=== PATIENT | male | born 1980 | race Caucasian/White ===

== ENCOUNTER 2022-06-25 18:19 | Emergency (ER) | payer BC ==
--- NOTE | 2022-06-25 19:52 | ED Fall/Injury ---
General Chief Complaint: Substance Abuse Stated Complaint: FELL AND HIT HEAD, DRINKING ALCOHOL FOR 5 DAYS Nursing Triage Note: PT CO OF DRINKING ETOH 4-5THS OF [place] SINCE THURSDAY. STATES FELL AND TRIPPED HIT HEAD A FEW HOURS AGO. DENIES LOC. PT HAS BLOOD ON CHIN. WANT TO GET SOBERED UP. STATE HAS LOTS OF ANXIETY. DAVID Hameed PT. Source: patient Exam Limitations: no limitations History of Present Illness Date Seen by Provider: Jun 25, 2022 Time Seen by Provider: 18:45 Initial Comments Patient is a 42-year-old male who presents to the emergency department after several days of "binge drinking" and hitting his head 4 to 5 hours prior to arrival. Patient states he was sober for 3 years prior to starting to drink again frequently 6 to 7 weeks ago. Patient states he did not lose consciousness and has not had any vomiting since the head injury occurred. He states he fell after tripping. States he has tolerated food and water since the head injury without issue. States he feels very good right now and is " more embarrassed than anything else." Denies any specific pain at the time of this interview. Allergies and Home Medications Patient Home Medication List Home Medication List Reviewed: Yes Review of Systems Review of Systems Constitutional: no symptoms reported Eyes: No Symptoms Reported Ears, Nose, Mouth, Throat: no symptoms reported Respiratory: no symptoms reported Cardiovascular: no symptoms reported Gastrointestinal: no symptoms reported Genitourinary: no symptoms reported Musculoskeletal: no symptoms reported Skin: no symptoms reported Psychiatric/Neurological: No Symptoms Reported Past Gdmayjt-Pszluj-Jyjtrs Hx Patient Social History Tobacco Use?: No Substance use?: No Alcohol Use?: Yes Alcohol type: Hard Liquor Alcohol Frequency: Daily Pt feels they are or have been: No Immunizations Up To Date Influenza Vaccine Up-to-Date: Yes; Up-to-Date First/Initial COVID19 Vaccinat: Y Second COVID19 Vaccination Santos: Y Third COVID19 Vaccination Date: Y Past Medical History Surgery/Hospitalization HX: B/P, ANXIETY, ALCOHOLIC Physical Exam Vital Signs Vital Signs - First Documented 06/25/22 18:45 Temp 36.4 Pulse 114 Resp 18 B/P (MAP) 118/84 (95) Pulse Ox 99 Capillary Refill : Less Than 3 Seconds Height, Weight, BMI Height: '" Weight: lbs. oz. kg; BMI Method: General Appearance: WD/WN, no apparent distress HEENT: PERRL/EOMI, normal ENT inspection, TMs normal, pharynx normal Neck: non-tender, full range of motion, supple, normal inspection Cardiovascular: regular rate, rhythm Respiratory: chest non-tender, lungs clear, normal breath sounds, no respiratory distress, no accessory muscle use Gastrointestinal: normal bowel sounds, non tender, soft Neurologic/Psychiatric: no motor/sensory deficits, alert, normal mood/affect, oriented x 3 Skin: normal color, warm/dry Progress/Results/Core Measures Results/Orders Vital Signs/I&O 06/25/22 18:45 Temp 36.4 Pulse 114 Resp 18 B/P (MAP) 118/84 (95) Pulse Ox 99 Blood Pressure Mean: 95 Progress Progress Note : Progress Note Patient is nontoxic and well-hydrated on exam. Vital signs are reassuring. Patient is awake alert and oriented answers all questions appropriately. He was ambulatory to the room without issue. He does have a very small abrasion to the left superior neck without any active bleeding. Patient has full range of motion of the neck. No hematomas noted to the scalp. He has no focal neurologic findings on exam. He appears clinically sober. He does not warrant cross-sectional imaging of the head as he has no concerning neurologic symptoms and no HPI consistent with skull fracture or intracranial bleed. He is also 5 to 6 hours removed from the injury. I offered basic blood testing but patient declined at this time prefers to go home and go to bed. He states he does wish to regain sobriety and I encouraged him to pursue resources local to his home. 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 No symptoms concerning for acute alcohol withdrawal at this time. Return precautions for urgent symptomology discussed. Patient verbalized understanding. Departure Impression Primary Impression: Alcohol abuse Additional Impression: Fall Qualified Codes: W19.XXXA - Unspecified fall, initial encounter Disposition: HOME, SELF-CARE Condition: Stable Departure-Patient Inst. Decision time for Depature: 19:50 Referrals: NO,LOCAL PHYSICIAN (PCP/Family) Primary Care Physician Patient Instructions: ALCOHOL AND SUBSTANCE ABUSE, Alcohol Use Disorder ED HOWARD VALDEZ APRN Jun 25, 2022 19:52
[2022-06-25 19:53] VITALS: BP 122/85
== END 2022-06-25 19:53 | disposition home or self-care (01) ==
LOC: ER 18:23
DX: S10.91XA Abrasion of unspecified part of neck, initial encounter (principal); F10.10 Alcohol abuse, uncomplicated; W01.10XA Fall on same level from slipping, tripping and stumbling with subsequent striking against unspecified object, initial encounter
CPT/HCPCS: 99281